=== PATIENT | female | born 1950 ===

== ENCOUNTER 2020-03-21 22:59 | Inpatient (IN) | payer MEDICARE ==
[~2020-03-21] VITALS: Ht 167.6 cm; Wt 65.8 kg
[2020-03-21] MEDS ORDERED: HALOPERIDOL LACTATE 5 MG/1 ML VIAL ONE (23:07)
[2020-03-21] MEDS ORDERED: LORAZEPAM 2 MG/1 ML VIAL ONE (23:08)
[2020-03-21] MEDS ORDERED: DIVA250T PO (23:09)
[2020-03-21] MEDS ORDERED: DIVA500T4 PO (23:09)
[2020-03-21] MEDS ORDERED: OLAN20TA24 PO (23:09)
[2020-03-21] MEDS ORDERED: HALOPERIDOL LACTATE 5 MG/1 ML VIAL IM ONE (23:15)
[2020-03-21] MEDS ORDERED: LORAZEPAM 2 MG/1 ML VIAL IM ONE (23:15)
[2020-03-22] MEDS ORDERED: DEXTROSE 50% 50 ML DISP.SYRIN ONE ×2 (00:13→03:49)
[2020-03-22] MEDS ORDERED: DEXTROSE 50% 50 ML DISP.SYRIN IV ONE ×2 (00:15→03:45)
--- NOTE | 2020-03-22 01:50 | NUR ---
Patient is awake and agitated, MD Santizo notifed.
[2020-03-22] MEDS ORDERED: KETAMINE HCL 500 MG/10 ML INJ ONE (01:53)
[2020-03-22] MEDS ORDERED: KETAMINE HCL 500 MG/10 ML INJ IM ONE (02:00)
--- NOTE | 2020-03-22 03:00 | NUR ---
Patient is resting, in no apparent distress.
[2020-03-22] MEDS ORDERED: IV D5/ 0.9% NACL 1,000 ML IV ONE (03:45)
[2020-03-22] MEDS ORDERED: ONDANSETRON 4 MG/2 ML VIAL IV PRN (04:00)
[2020-03-22] MEDS ORDERED: Z GUARD REMEDY PASTE 57 GM TUBE TOP PRN (04:00)
[2020-03-22] MEDS ORDERED: ACETAMINOPHEN 325 MG TABLET PO PRN (04:00)
[2020-03-22] MEDS ORDERED: HYDROCODONE/APAP 5-325MG TABLET PO PRN (04:00)
[2020-03-22] MEDS ORDERED: MAGNESIUM HYDROXIDE 30 ML LIQUID UDC PO PRN (04:00)
[2020-03-22] MEDS ORDERED: IV D5/ 0.9% NACL 1,000 ML IV PRN (04:00)
[2020-03-22 04:06] LABS: BASOPHILS % (AUTO) 0.5 % (0.0-2.0); EOSINOPHILS # (AUTO) 0.1 K/uL (0.0-0.7); EOSINOPHILS % (AUTO) 1.5 % (0.0-7.0); HEMATOCRIT 35.7 % (31.2-41.9); HEMOGLOBIN 11.1 g/dL (10.9-14.3); LYMPHOCYTES # (AUTO) 0.8 K/uL (20.0-40.0); LYMPHOCYTES % (AUTO) 13.5 % (20.5-51.5); MEAN CORPUSCULAR HEMOGLOBIN 24.1 uug (24.7-32.8); MEAN CORPUSCULAR HGB CONC 31 g/dL (32.3-35.6); MEAN CORPUSCULAR VOLUME 77.6 fL (75.5-95.3); MONOCYTES # (AUTO) 0.5 K/uL (2.0-10.0); MONOCYTES % (AUTO) 8.7 % (0.0-11.0); NEUTROPHILS # (AUTO) 4.3 K/uL (1.8-8.9); NEUTROPHILS % (AUTO) 75.8 % (38.5-71.5); PLATELET COUNT (AUTO) 331 K/uL (179-408); WHITE BLOOD COUNT (AUTO) 5.7 K/uL (3.8-11.8)
[2020-03-22 04:10] LABS: CREATININE 0.8 mg/dL (0.6-1.3); POTASSIUM 4.1 mmol/L (3.5-5.1)
[2020-03-22] MEDS ORDERED: DEXTROSE 50% 50 ML DISP.SYRIN IV PRN (04:15)
[2020-03-22 04:16] LABS: BILIRUBIN,DIRECT 0.1 mg/dL (0.0-0.2); BILIRUBIN,TOTAL 0.5 mg/dL (0.2-1.0); TOTAL PROTEIN, SERUM 6.8 g/dL (6.4-8.2)
[2020-03-22] MEDS: BLOOD SUGAR DIAGNOSTIC 1 EACH STRIP VI SCH ×2 (04:45→07:01)
--- NOTE | 2020-03-22 05:27 | NUR ---
Report given to CORNELIUS Parkinson. Patient will be going to CCU 1.
--- NOTE | 2020-03-22 06:50 | NUR ---
Pt. admitted to CCU 1, under care of MANAGER ACTUARIAL ADAM GRAF. [place] List completed, patient transferred upstairs via gurney.
[2020-03-22 08:00] VITALS: BP 131/70
--- NOTE | 2020-03-22 08:29 | NUR ---
Dr. Carpio in the unit to see and assess pt. full report given
--- NOTE | 2020-03-22 08:30 | NUR ---
pt was seen by Dr. Carpio with new order to transfer pt to [facility]. [place]NELIUS [place] [facility] [place]
--- NOTE | 2020-03-22 09:15 | NUR ---
pt agitated, verbally abusive using foul language. pt pulls out all monitoring devices such as BP cuff, EKG lead, etc. gets out of bed and yells at staff.
== END 2020-03-22 09:40 | DRG 637 ==
LOC: ER 22:59 → CCU 03-22 05:41
PROVIDERS: ADMIT Internal Medicine; ATTEND Internal Medicine
DX: E11.649 Type 2 diabetes mellitus with hypoglycemia without coma (principal); G93.41 Metabolic encephalopathy; F23 Brief psychotic disorder; Z59.0 Homelessness
CPT/HCPCS: 36415; 85025; G0378; J1630; J2060; J3490; J7042

== ENCOUNTER 2020-03-22 10:05 | Inpatient (IN) | payer MEDICARE ==
[~2020-03-22] VITALS: Ht 157.5 cm; Wt 49.9 kg
[~2020-03-22 10:05] MED LIST: DIVA250T PO; DIVA500T4 PO; OLAN20TA24 PO
[2020-03-22 10:15] VITALS: BP 97/63
[2020-03-22] MEDS ORDERED: ACETAMINOPHEN 325 MG TABLET PO PRN (10:30)
[2020-03-22] MEDS ORDERED: BLOOD SUGAR DIAGNOSTIC 1 EACH STRIP VI ONE (10:30)
[2020-03-22] MEDS ORDERED: MAG HYDROX/AL HYDROX/SIMETH 30 ML LIQUID UDC PO PRN (10:30)
[2020-03-22] MEDS ORDERED: TEMAZEPAM 7.5 MG CAPSULE PO PRN (10:30)
[2020-03-22] MEDS ORDERED: LORAZEPAM 0.5 MG TABLET PO PRN (10:30)
[2020-03-22] MEDS ORDERED: DEXTROSE 50% 50 ML DISP.SYRIN IV PRN (12:45)
[2020-03-22] MEDS ORDERED: INSULIN REGULAR, HUMAN 300 UNIT/3 ML VIAL SQ PRN (12:45)
[2020-03-22 16:00] VITALS: BP 130/66
[2020-03-22] MEDS: BLOOD SUGAR DIAGNOSTIC 1 EACH STRIP VI SCH ×2 (16:44→21:01)
[2020-03-22 20:26] VITALS: BP 136/64
[2020-03-23] MEDS: BLOOD SUGAR DIAGNOSTIC 1 EACH STRIP VI SCH ×4 (06:32→20:46)
[2020-03-23 06:58] LABS: CREATININE 0.8 mg/dL (0.6-1.3)
[2020-03-23 07:30] VITALS: BP 137/68
[2020-03-23] MEDS: OLANZAPINE 5 MG TABLET PO SCH ×2 (12:08→17:07)
[2020-03-23] MEDS: DIVALPROEX 250 MG TABLET.DR PO SCH ×2 (12:09→17:07)
[2020-03-23 16:11] LABS: *BILIRUBIN,URIN NEGATIVE (NEGATIVE); *BLOOD, URINE NEGATIVE (NEGATIVE); *CLARITY,URINE CLEAR (CLEAR); *COLOR,URINE YELLOW (YELLOW); *KETONES,URINE NEGATIVE (NEGATIVE); *UROBILINOGEN,URINE 0.2 E.U./dl (NORMAL); LEUKOCYTE ESTERASE ,URINE NEGATIVE (NEGATIVE); NITRITE, URINE NEGATIVE (NEGATIVE); UGLUCOSE NEGATIVE (NEGATIVE)
[2020-03-23] MEDS: GLUCERNA SHAKE 237 ML CAN PO SCH (17:08)
[2020-03-23 20:42] VITALS: BP 118/51
[2020-03-24] MEDS: BLOOD SUGAR DIAGNOSTIC 1 EACH STRIP VI SCH ×3 (06:43→20:51)
[2020-03-24 07:30] VITALS: BP 119/66
[2020-03-24] MEDS: OLANZAPINE 5 MG TABLET PO SCH ×2 (08:32→16:20)
[2020-03-24] MEDS: GLUCERNA SHAKE 237 ML CAN PO SCH ×2 (08:32→16:20)
[2020-03-24] MEDS: DIVALPROEX 250 MG TABLET.DR PO SCH ×3 (08:32→16:20)
[2020-03-24] MEDS: NEOMY/BACITRAC/POLYMI OINT 28.35 GM TUBE TOP SCH (12:00)
[2020-03-24] MEDS ORDERED: INSULIN REGULAR, HUMAN 300 UNIT/3 ML VIAL SQ PRN (13:13)
[2020-03-24] MEDS ORDERED: DEXTROSE 50% 50 ML DISP.SYRIN IV PRN (13:13)
[2020-03-24 16:53] VITALS: BP 123/71
[2020-03-24 20:29] VITALS: BP 113/51
[2020-03-25 07:30] VITALS: BP 101/52
[2020-03-25] MEDS: DIVALPROEX 250 MG TABLET.DR PO SCH ×3 (08:38→16:44)
[2020-03-25] MEDS: OLANZAPINE 5 MG TABLET PO SCH ×2 (08:38→16:44)
[2020-03-25] MEDS: NEOMY/BACITRAC/POLYMI OINT 28.35 GM TUBE TOP SCH (08:38)
[2020-03-25] MEDS: GLUCERNA SHAKE 237 ML CAN PO SCH ×2 (08:39→17:00)
[2020-03-25 16:00] VITALS: BP 140/93
[2020-03-25] MEDS: LORAZEPAM 1 MG TABLET PO PRN (16:53)
[2020-03-25 20:25] VITALS: BP 136/74
[2020-03-25] MEDS: BLOOD SUGAR DIAGNOSTIC 1 EACH STRIP VI SCH (21:00)
[2020-03-26] MEDS: LORAZEPAM 1 MG TABLET PO PRN ×2 (03:53→12:25)
[2020-03-26 07:30] VITALS: BP 107/67
[2020-03-26] MEDS: DIVALPROEX 250 MG TABLET.DR PO SCH ×3 (08:29→16:28)
[2020-03-26] MEDS: OLANZAPINE 5 MG TABLET PO SCH ×2 (08:29→16:28)
[2020-03-26] MEDS: GLUCERNA SHAKE 237 ML CAN PO SCH ×2 (08:30→16:28)
[2020-03-26] MEDS: NEOMY/BACITRAC/POLYMI OINT 28.35 GM TUBE TOP SCH (08:30)
[2020-03-26 16:00] VITALS: BP 109/47
[2020-03-26 19:53] VITALS: BP 106/52
[2020-03-26] MEDS: BLOOD SUGAR DIAGNOSTIC 1 EACH STRIP VI SCH (20:31)
[2020-03-27 07:30] VITALS: BP 110/62
[2020-03-27] MEDS: OLANZAPINE 5 MG TABLET PO SCH ×2 (08:32→16:12)
[2020-03-27] MEDS: DIVALPROEX 250 MG TABLET.DR PO SCH ×3 (08:32→16:12)
[2020-03-27] MEDS: GLUCERNA SHAKE 237 ML CAN PO SCH ×2 (08:32→16:12)
[2020-03-27] MEDS: NEOMY/BACITRAC/POLYMI OINT 28.35 GM TUBE TOP SCH (08:33)
[2020-03-27 16:00] VITALS: BP 125/53
[2020-03-27] MEDS: BLOOD SUGAR DIAGNOSTIC 1 EACH STRIP VI SCH (20:38)
[2020-03-27 22:00] VITALS: BP 132/65
[2020-03-28 07:30] VITALS: BP 107/62
[2020-03-28] MEDS: OLANZAPINE 5 MG TABLET PO SCH ×2 (08:41→17:15)
[2020-03-28] MEDS: DIVALPROEX 250 MG TABLET.DR PO SCH ×3 (08:41→17:15)
[2020-03-28] MEDS: NEOMY/BACITRAC/POLYMI OINT 28.35 GM TUBE TOP SCH (08:42)
[2020-03-28] MEDS: GLUCERNA SHAKE 237 ML CAN PO SCH ×2 (08:42→17:15)
[2020-03-28 15:45] VITALS: BP 102/46
[2020-03-28 20:22] VITALS: BP 103/41
[2020-03-29 07:30] VITALS: BP 122/63
[2020-03-29] MEDS: DIVALPROEX 250 MG TABLET.DR PO SCH (08:39)
[2020-03-29] MEDS: OLANZAPINE 5 MG TABLET PO SCH ×2 (08:39→17:07)
[2020-03-29] MEDS: NEOMY/BACITRAC/POLYMI OINT 28.35 GM TUBE TOP SCH (08:40)
[2020-03-29] MEDS: GLUCERNA SHAKE 237 ML CAN PO SCH ×2 (08:49→17:08)
[2020-03-29] MEDS ORDERED: DIVALPROEX 250 MG TABLET.DR PO ONE (09:15)
[2020-03-29] MEDS ORDERED: DIVALPROEX 250 MG TABLET.DR PO SCH (09:15)
[2020-03-29 16:00] VITALS: BP 93/61
[2020-03-29] MEDS: DIVALPROEX 500 MG TABLET.DR PO SCH (17:07)
[2020-03-29 20:47] VITALS: BP 112/60
[2020-03-30 07:30] VITALS: BP 91/63
[2020-03-30] MEDS ORDERED: OLANZAPINE 5 MG TABLET PO SCH (09:00)
[2020-03-30] MEDS: DIVALPROEX 500 MG TABLET.DR PO SCH ×2 (10:01→17:41)
[2020-03-30] MEDS: NEOMY/BACITRAC/POLYMI OINT 28.35 GM TUBE TOP SCH (10:02)
[2020-03-30] MEDS: OLANZAPINE 2.5 MG TABLET PO SCH ×2 (10:04→17:53)
[2020-03-30] MEDS: GLUCERNA SHAKE 237 ML CAN PO SCH ×2 (10:04→17:56)
[2020-03-30 15:27] VITALS: BP 103/45
[2020-03-30 20:23] VITALS: BP 116/50
[2020-03-31 07:20] LABS: BASOPHILS # (AUTO) 0.1 K/uL (0.0-8.0); BASOPHILS % (AUTO) 1.2 % (0.0-2.0); EOSINOPHILS # (AUTO) 0.1 K/uL (0.0-0.7); EOSINOPHILS % (AUTO) 1.1 % (0.0-7.0); HEMATOCRIT 33.1 % (31.2-41.9); HEMOGLOBIN 10.2 g/dL (10.9-14.3); LYMPHOCYTES % (AUTO) 17.7 % (20.5-51.5); MEAN CORPUSCULAR HGB CONC 31 g/dL (32.3-35.6); MEAN CORPUSCULAR VOLUME 77.4 fL (75.5-95.3); MONOCYTES # (AUTO) 0.6 K/uL (2.0-10.0); NEUTROPHILS # (AUTO) 3.9 K/uL (1.8-8.9); PLATELET COUNT (AUTO) 371 K/uL (179-408); RED BLOOD CELL COUNT(AUTO) 4.27 MIL/uL (3.63-4.92); WHITE BLOOD COUNT (AUTO) 5.6 K/uL (3.8-11.8)
[2020-03-31 07:30] VITALS: BP 124/52
[2020-03-31 07:48] LABS: THYROID STIMULATING HORMONE 2.953 mIU/mL (0.358-3.740)
[2020-03-31 08:06] LABS: BILIRUBIN,TOTAL 0.2 mg/dL (0.2-1.0); CREATININE 0.7 mg/dL (0.6-1.3); MAGNESIUM 2.2 mg/dL (1.8-2.4); PHOSPHOROUS 3.9 mg/dL (2.5-4.9); POTASSIUM 4.2 mmol/L (3.5-5.1); TOTAL PROTEIN, SERUM 6.8 g/dL (6.4-8.2)
[2020-03-31] MEDS: DIVALPROEX 500 MG TABLET.DR PO SCH (09:08)
[2020-03-31] MEDS: OLANZAPINE 2.5 MG TABLET PO SCH (09:08)
[2020-03-31] MEDS: GLUCERNA SHAKE 237 ML CAN PO SCH (09:15)
[2020-03-31] MEDS: NEOMY/BACITRAC/POLYMI OINT 28.35 GM TUBE TOP SCH (09:54)
== END 2020-03-31 15:30 | DRG 885 ==
LOC: GPS 10:05
PROVIDERS: ADMIT Psychiatry & Neurology Psychiatry; ATTEND Registered Nurse
DX: F29 Unspecified psychosis not due to a substance or known physiological condition (principal); F23 Brief psychotic disorder; F25.0 Schizoaffective disorder, bipolar type; Z59.0 Homelessness; E11.9 Type 2 diabetes mellitus without complications; R62.7 Adult failure to thrive; Z68.20 Body mass index [BMI] 20.0-20.9, adult; F19.10 Other psychoactive substance abuse, uncomplicated; Z20.822 Contact with and (suspected) exposure to COVID-19
CPT/HCPCS: 36415; 80164; 83735; 84100; 84443; 85025; J1815; J3490